=== PATIENT | male | born 1950 | race Caucasian/White ===

== ENCOUNTER 2021-06-05 14:07 | Emergency (ER) | payer MEDICARE, SELFPAY ==
--- NOTE | ~2021-06-05 | MR_ITS ---
EXAMINATION: MRI OF THE BRAIN WITHOUT CONTRAST CLINICAL INFORMATION: Dizziness and nausea. History of TIA. COMPARISON: CT scan of the head earlier 06/05/2021.. TECHNIQUE: MRI of the brain was obtained using routine sequences without contrast. FINDINGS: No diffusion abnormalities are identified to suggest an acute or subacute infarct. No mass effect or midline shift is seen. There is commensurate prominence of the ventricles and sulci. There are scattered areas of low-attenuation the periventricular white matter, most consistent with chronic microvascular ischemic changes. No extra-axial fluid collections are seen. The brainstem and cerebellum are normal. No pathologic magnetic susceptibility artifact is identified on the gradient refocused acquisition. The craniovertebral junction, marrow signal, and midline structures are normal. The major intracranial flow-voids at the level of the [place] are preserved. The dural venous sinus flow-voids are maintained. The mastoid air cells are well-aerated. There is mucoperiosteal thickening in the right maxillary sinus. MR/MR head/brain wo con IMPRESSION: 1. There are no acute bleeds or territorial infarcts. No masses are demonstrated. 2. There are chronic microvascular ischemic changes and there is diffuse volume loss.
--- NOTE | ~2021-06-05 | CT_ITS ---
EXAMINATION: CT HEAD WITHOUT CONTRAST CLINICAL INFORMATION: Dizziness. Nausea. COMPARISON: None TECHNIQUE: Contiguous axial imaging was performed from the skull base to vertex without intravenous administration of contrast. Coronal and sagittal reformatted images are performed at CT scanner This CT examination was performed using dose optimization techniques as appropriate, variously including the following: *Automated exposure control *Adjustment of mA and/or kV according to patient size (this includes techniques or standardized protocols for targeted exams where dose is matched to indication/reason for exam; i.e. extremities or head) *Use of iterative reconstruction technique DLP: 735 mGy-cm FINDINGS: There is no evidence of acute intracranial hemorrhage or territorial infarction. No abnormal mass effect or midline shift is seen. Shepherd to white matter differentiation is well preserved. No extra-axial fluid collections are identified. There is generalized global volume loss. There is mild prominence of the ventricles and the sulci . There is mild hypodensity of the periventricular white matter due to chronic small vessel ischemic disease. There are vascular calcifications of the internal carotid arteries bilaterally. The osseous structures and soft tissues are normal. The mastoid air cells and visualized portions of the paranasal sinuses are well aerated. CT/CT head/brain wo con IMPRESSION: No acute intracranial pathology.
--- NOTE | ~2021-06-05 | XR_ITS ---
EXAMINATION: XR CHEST CLINICAL INFORMATION: Dizziness with nausea COMPARISON: None TECHNIQUE: 2 views of the chest were obtained. FINDINGS: No significant abnormality is noted involving the heart, lungs, mediastinum, bony thorax or soft tissues. XR/XR chest 2V IMPRESSION: Unremarkable chest examination.
[2021-06-05 14:45] VITALS: BP 146/119; BP 80/50; PULSE 110; PULSE 113; RESP 18; TEMP 36.4; O2SAT 95; BMI 38.3
[2021-06-05 14:50] VITALS: BP 80/43; PULSE 114; O2SAT 94
--- NOTE | 2021-06-05 14:59 | ECG_ITS ---
Test Reason : Dizziness Blood Pressure : / mmHG Vent. Rate : 076 BPM Atrial Rate : 076 BPM P-R Int : 144 ms QRS Dur : 074 ms QT Int : 398 ms P-R-T Axes : 013 006 010 degrees QTc Int : 447 ms Normal sinus rhythm Normal ECG No previous ECGs available Referred By: Apolonia Hernandez Electronically Signed By:DREW KAY
--- NOTE | 2021-06-05 15:11 | ED_ITS ---
HPI - Dizziness General Chief Complaint: Dizziness Stated Complaint: DIZZY,LETHARGY,? TOOK TOO MUCH BP MED PER PT Time Seen by Provider: 06/05/21 14:31 Source: patient and EMS Mode of arrival: EMS Limitations: no limitations History of Present Illness HPI Narrative: 70-year-old male with a past medical history of a HTN, HLD and TIA on 01/24/2021 seen at [facility] currently only on a baby aspirin daily presenting to the ED with complaints of sudden onset of dizziness when he was at the mall at the [employer] standing he reports that he felt really dizzy like he was going to fall and he felt very nauseated therefore he laid down and they called EMS. He reports that after he laid down and when EMS arrived and gave him fluids his dizziness resolved. He reports that he believes he might have taken too much blood pressure medication 1-2 hours prior to the episode of dizziness. He reports that he was started on a new blood pressure medication although he is unsure what the name is and he might have taken a double dose. Although he reports that he is unsure if he is having a TIA/stroke and requ esting an MRI. He denies any dizziness at this time, changes in vision, nausea/vomiting, paresthesias, chest pain, shortness of breath, dyspnea on exertion, orthopnea, palpitations, diarrhea, abdominal pain, back pain, lower extremity edema or calf tenderness or any focal weakness or general weakness or any other symptoms complaints or concerns at this time. MD elicited complaint: dizziness Onset (ago): hour(s) (1 hour prior to arrival) Timing: sudden onset Severity: moderate Description: lightheadedness Context: change in medication History of similar symptoms: Yes (Patient has a history of a TIA on 01/24/2021 r eports he was seen at [facility] ) Exacerbating factors: nothing Relieving factors: lying down Associated symptoms: nausea Related Data Allergies Allergy/AdvReac Type Severity Reaction Status Date / Time No Known Allergies Allergy Verified 06/05/21 14:48 Review of Systems Review of Systems: Constitutional : No Fever, No Chills, No Night Sweats, No Fatigue, No Malaise ENT/Mouth : No Ear Pain, No Nasal Congestion, No Sinus Pain, No sore throat, No Rhinorrhea Eyes: No Eye Pain, No Swelling, No Redness, No Foreign Body, No Discharge, No Vision Changes Cardiovascular : No Chest Pain, No SOB, No Dyspnea on Exertion, No Orthopnea, No Palpitations Respiratory : No Cough, No Sputum, No Wheezing, No Dyspnea Gastrointestinal : Positive resolve nausea, No Vomiting, No Diarrhea, No Constipation, No abdominal Pain, No Hematochezia, No Melena Genitourinary : No Dysuria, No Urinary Frequency, No Urinary Incontinence, No Urgency, No Flank Pain Musculoskeletal : No joint pain, No Myalgias Skin : No lacerations Neuro : Positive resolved dizziness, No Focal weakness, no general weakness, No Numbness, No Paresthesias, No Loss of Consciousness, No Headache Yes all other systems are reviewed and are negative [facility] Past Medical History Attestation statement: The following information was validated with the patient. Medical History High cholesterol HTN (hypertension) TIA (transient ischemic attack) Social History Social History Patient Tobacco Use Status: Never used Tobacco Use of substances other than those prescribed or required for medical reasons: No Advance Directives: No Advance Directives Information Provided: No Physical Exam Vital Signs: Vital Signs: Last Vital Signs Temp 97.6 F 06/05/21 14:45 Pulse 86 06/05/21 16:45 Resp 18 06/05/21 16:45 BP 111/74 06/05/21 16:45 Pulse Ox 96 06/05/21 16:45 BMI result Body Mass Index 38.3 Vital signs have been reviewed as normal and appeared to be correct. Blood pressure normal. Heart rate normal. Respiration rate normal. Temperature normal. Oxygen saturation normal. Appearance: Alert. Oriented X3. No acute distress. Head: Normal external exam. Normocephalic. Atraumatic. Able to rotate head bilaterally. Eyes: PERRLA. EOMI. No nystagmus noted. Conjunctiva and sclera normal. Eyelids normal. Corneal reflex normal. ENT: EAC normal. TM's Normal. Hearing normal. Pharynx normal. Uvula midline. tongue midline. Moist mucous membranes. No trismus noted. No drooling noted. No muffled voice noted. No nystagmus noted. Neck: Normal inspection. Neck supple. FROM. No adenopathy. Trachea midline. Thyroid Normal. No meningeal signs. No neck mass noted. CVS: Normal heart rate and rhythm. Heart sound normal. No murmurs noted. Pulses normal throughout. Respiratory: No respiratory distress. Painless inspiration. Breath sounds normal. No wheezes/rales/rhonchi noted. Chest nontender. No accessory muscle usage noted or decreased air movement noted. Abdomen: Soft and nontender. Bowel sounds normal in all 4 quadrants. No distention noted. No organomegaly noted. No visible injury noted. Back: No CVA tenderness. Full range of motion noted. Skin: Skin warm and dry. Normal skin color. Normal skin turgor. No rashes/ lesions/lacerations noted. Extremities: No lower extremity edema. Extremities exhibit normal range of motion. Extremities nontender. Able to shrug shoulders bilaterally and keep up against resistance. Neuro: Oriented X 3. No motor deficit. No sensory deficit. Reflexes normal. Moving all extremities. No focal motor deficits. Cranial nerves II-XI intact bilaterally. Facial strength normal. Normal cognition. Speech normal. Gait normal. Strength 5/5 throughout. No pronator drift. No tremor noted. No fasciculations noted. No rigidity noted. Muscle tone normal throughout. No asterixis noted. [id number]-mp-[id number] test normal. Heel to martinez test normal. Tandem gait normal. Does not sway with eyes open. Romberg test negative. Rapid alternating movement upper extremity normal. Rapid alternating movement lower extremity normal. Hand drop from overhead Misses face. NIHSS score 0. NIH Stroke Scale Internal: Initial- Upon Arrival Time: 15:00 Level of Consciousness: Alert Level of Consciousness Questions: Answers both questions correctly Level of Consciousness Commands: Performs both tasks correctly Best Gaze: Normal Visual: No visual loss Facial Palsy: Normal Motor Arm (Right): No drift Motor Arm (Left): No drift Motor Leg (Right): No drift Motor Leg (Left): No drift Limb Ataxia: Absent Sensory: Normal Best Language: No aphasia Dysarthia: Normal Extinction and Inattention: No abnormality Score: 0 Course Course Course Narrative: 15pm - 70-year-old male with a past medical history of a HTN, HLD and TIA on 01/24/2021 seen at [facility] currently only on a baby aspirin daily presenting to the ED with complaints of sudden onset of dizziness when he was at the mall at [place] [employer] standing he reports that he felt really dizzy like he was going to fall and he felt very nauseated therefore he laid down and they called EMS. He reports that after he laid down and when EMS arrived and gave him fluids his dizziness resolved. He reports that he believes he might have taken too much blood pressure medication 1-2 hours prior to the episode of dizziness. He reports that he was started on a new blood pressure medication although he is unsure what the name is and he might have taken a double dose. Although he reports that he is unsure if he is having a TIA/stroke and requesting an MRI. On exam patient is alert and oriented x3. Not in any acute distress. No focal neuro deficit noted. NIHSS score 0 at this time. Patient has non disabling symptoms at this time therefore not a tPA candidate. Lungs clear to auscultation. CV RRR. Abdomen is soft and nontender. No lower extremity edema or calf tenderness is noted. Plan: Patient noted to be hypotensive at 80/43 therefore will give a L of IV fluids. Otherwise patient denies any additional complaints. Will obtain labs, EKG, chest x-ray, CT scan of brain and MRI of brain without contrast to evaluate for possible stroke and re-evaluate. Reevaluation(s) Reevaluation #1: - CBC was not collected. Otherwise patient's PT INRs within normal limits. Creatinine 1.51. Troponin 6.2 therefore will be repeated in 3 hours. Otherwise all other labs except for CBC within normal limits. CBC will need to be collected. - CT scan of brain within normal limits no acute processes are noted. - chest x-ray within normal limits no acute processes are noted. - patient is currently on MRI - pending MRI. Records were received from [facility] in it appears that patient did have a chronic strokes. Sign out to LAURA Sanchez Time: 17:35 [facility] - Dizziness Medical Records Attestation: I reviewed the patient's medical records. Lab Data Attestation: I reviewed the patient's lab results. Result diagrams: 06/05/21 16:08 Labs: Lab Results 06/05/21 06/05/21 06/05/21 Range/Units 16:08 16:08 16:08 PT 11.8 (9.9-13.0) SEC INR 1.0 (0.9-1.1) APTT (24.1-38.0) SEC Sodium 138 (135-145) mmol/L Potassium 4.4 (3.3-5.1) mmol/L Chloride 103 (96-108) mmol/L Carbon Dioxide 27 (22-29) mmol/L Anion Gap 12 (12-20) BUN 14 (9-16) mg/dL Creatinine 1.51 H (0.5-1.4) mg/dL Estim Creat Clear Calc 53.3 Estimated GFR 46 Random Glucose 106 (60-115) mg/dL Calcium 9.4 (8.4-10.2) mg/dL Magnesium 2.0 (1.6-2.6) mg/dL Total Bilirubin 0.5 (0.0-1.0) mg/dL AST 25 (5-37) U/L ALT 32 (0-40) U/L Alkaline Phosphatase 65 (39-117) U/L Troponin I High Sens 6.2 (<3.5-35.0) ng/L Total Protein 6.4 L (6.5-8.0) g/dL Albumin 3.9 (3.5-5.0) g/dL COVID-19 (MELISSA) (Negative) COVID-19 Clin Com 06/05/21 06/05/21 Range/Units 16:08 16:09 PT (9.9-13.0) SEC INR (0.9-1.1) APTT 37.4 (24.1-38.0) SEC Sodium (135-145) mmol/L Potassium (3.3-5.1) mmol/L Chloride (96-108) mmol/L Carbon Dioxide (22-29) mmol/L Anion Gap (12-20) BUN (9-16) mg/dL Creatinine (0.5-1.4) mg/dL Estim Creat Clear Calc Estimated GFR Random Glucose (60-115) mg/dL Calcium (8.4-10.2) mg/dL Magnesium (1.6-2.6) mg/dL Total Bilirubin (0.0-1.0) mg/dL AST (5-37) U/L ALT (0-40) U/L Alkaline Phosphatase (39-117) U/L Troponin I High Sens (<3.5-35.0) ng/L Total Protein (6.5-8.0) g/dL Albumin (3.5-5.0) g/dL COVID-19 (MELISSA) Negative (Negative) COVID-19 Clin Com See Note Imaging Data Chest x-ray: Attestation: I personally reviewed and interpreted this imaging study as follows: Radiologist's impression: FINDINGS: No significant abnormality is noted involving the heart, lungs, mediastinum, bony thorax or soft tissues. XR/XR chest 2V IMPRESSION: Unremarkable chest examination. CT scan of brain without contrast: Attestation: I personally reviewed and interpreted this imaging study as follows: Radiologist's impression: FINDINGS: There is no evidence of acute intracranial hemorrhage or territorial infarction. No abnormal mass effect or midline shift is seen. Shepherd to white matter differentiation is well preserved. No extra-axial fluid collections are identified. There is generalized global volume loss. There is mild prominence of the ventricles and the sulci . There is mild hypodensity of the periventricular white matter due to chronic small vessel ischemic disease. There are vascular calcifications of the internal carotid arteries bilaterally. The osseous structures and soft tissues are normal. The mastoid air cells and visualized portions of the paranasal sinuses are well aerated. ? CT/CT head/brain wo con IMPRESSION: No acute intracranial pathology. ECG Data Attestation: I personally reviewed and interpreted this ECG as follows: ECG interpretation date: 06/05/21 Critical Care Time Critical Care Time Critical Care Time: Yes Total Critical Care Time: 60 Attestation: I personally attest to this time spent taking care of the patient Discharge Plan Discharge Clinical Impression: Dizziness, Low blood pressure, Nausea Patient Disposition: Still a Patient
[2021-06-05] MEDS: 0.9 % Sodium Chloride 1,000 ML 999 ML IVCONT ×2 (15:49→16:44)
[2021-06-05 16:25] LABS: Prothrombin Time 11.8 SEC (9.9-13.0)
[2021-06-05 16:28] LABS: Partial Thromboplastin Time 37.4 SEC (24.1-38.0)
[2021-06-05 16:33] LABS: COVID-19 Test Negative (Negative); IDNOW Serial# 9DD0AD1C
[2021-06-05 16:33] LABS: Alanine Aminotransferase 32 U/L (0-40); Albumin Level 3.9 g/dL (3.5-5.0); Alkaline Phosphatase 65 U/L (39-117); Anion Gap 12 (12-20); Aspartate Amino Transferase 25 U/L (5-37); Bilirubin Total 0.5 mg/dL (0.0-1.0); Blood Urea Nitrogen 14 mg/dL (9-16); Calcium 9.4 mg/dL (8.4-10.2); Carbon Dioxide 27 mmol/L (22-29); Chloride 103 mmol/L (96-108); Creatinine Clr Calc Pharmacy 53.3; Estimated Glomerular Filt Rate 46; Glucose Random 106 mg/dL (60-115); Potassium 4.4 mmol/L (3.3-5.1); Sodium 138 mmol/L (135-145); Total Protein 6.4 g/dL (6.5-8.0)
[2021-06-05 16:36] LABS: Troponin-I High Sensitivity 6.2 ng/L (<3.5-35.0)
[2021-06-05 16:45] VITALS: BP 111/74; PULSE 86; RESP 18; O2SAT 96
[2021-06-05 17:59] VITALS: BP 98/61; PULSE 81; RESP 18; TEMP 36.4; O2SAT 95
--- NOTE | 2021-06-05 18:00 | PC.NURSE ---
pt. well appearing. speaks in full, clear sentences. RR equal and unlabored. No dizziness at this time. Speech is clear. tongue midline. face symmetrical. S trength of upper and lower extremities equal bilaterally.
[2021-06-05 18:57] LABS: MANUAL DIFF FLAG NO
--- NOTE | 2021-06-05 18:57 | PC.NURSE ---
labs obtained and sent for processing by this TORIN freed NP aware. pt without complaints/concerns.
[2021-06-05 18:58] LABS: Basophils Percent Auto 0.4 % (0-2); Eosinophils Percent Auto 0.6 % (0-4); Hematocrit 40.1 % (42.0-52.0); Hemoglobin 13.7 g/dl (14.0-18.0); Imm Gran Abs Auto 0.01 X10*3/uL (0.00-0.03); Imm Gran Pct Auto 0.2 % (0.0-0.4); Lymphocytes Absolute Auto 0.6 X10*3/uL (1.2-4.9); Lymphocytes Percent Auto 10.8 % (20-40); Mean Corpuscular HGB Conc 34.2 g/dl (31.0-36.0); Mean Corpuscular Volume 90.7 fL (80.0-98.0); Mean Platelet Volume 8.5 fL (9.4-12.4); Monocytes Absolute Auto 0.5 X10*3/uL (0.1-1.2); Monocytes Percent Auto 9.5 % (2-11); Neutrophils Absolute Auto 4.3 x10*3/uL (2.0-8.3); Neutrophils Percent Auto 78.5 % (45-73); Platelet Count 243 X10*3/uL (160-400); Red Blood Count 4.42 X10*6/uL (4.60-5.80); Red Cell Distribution Width 13.7 % (11.0-16.0); White Blood Count 5.5 X10*3/uL (4.8-10.8)
[2021-06-05 19:08] LABS: Lactic Acid 1.2 mmol/L (0.5-2.0)
[2021-06-05 19:23] LABS: Troponin-I High Sensitivity 8.4 ng/L (<3.5-35.0)
[2021-06-05 20:04] VITALS: BP 95/60; PULSE 92; RESP 17; O2SAT 95
== END 2021-06-05 20:25 | disposition home or self-care (01) ==
PROVIDERS: Physician Assistant Medical; Emergency Provider Emergency Medicine; PCP Nurse Practitioner Family
DX: R42 Dizziness and giddiness (principal); R11.0 Nausea; R03.1 Nonspecific low blood-pressure reading; I10 Essential (primary) hypertension; E78.5 Hyperlipidemia, unspecified; Z20.822 Contact with and (suspected) exposure to COVID-19; Z86.73 Personal history of transient ischemic attack (TIA), and cerebral infarction without residual deficits; Z79.82 Long term (current) use of aspirin; Z79.899 Other long term (current) drug therapy
CPT/HCPCS: 36415; 70450; 70551; 71046; 80053; 83605; 83735; 84484; 85025; 85610; 85730; 87040; 87635; 93005; 96360; 99284; 99291